=== PATIENT | female | born 1945 | race Caucasian/White ===

== ENCOUNTER 2024-11-17 09:01 | Emergency (ER) | payer OTHER, SELFPAY ==
[2024-11-17 09:14] VITALS: BP 114/65; PULSE 82; RESP 18; TEMP 36.3; O2SAT 96; BMI 26.6
--- NOTE | 2024-11-17 09:47 | CRLHL7_ITS ---
For Patients: As a result of the Century Cures Act, medical imaging exams and procedure reports are released immediately into your electronic medical record. You may view this report before your referring provider. If you have questions, please contact your health care provider. Indication: Lower abdominal pain history of prior appendectomy and cholecystectomy Technique: Volumetric multidetector CT images of the abdomen and pelvis were obtained after the administration of intravenous contrast. 64 cc Isovue 370 low osmolar intravenous contrast Comparison: None available. Findings: The lung bases are clear. The liver is normal in attenuation without intrahepatic biliary ductal dilatation. The portal vein is patent. Prior cholecystectomy. Mild reservoir dilatation of the intrahepatic and common bile ducts. The spleen is normal in enhancement and size. Moderate thickening of the gastric antrum and gastric rugal folds which may represent sequela of gastritis changes. There is a questionable ill-defined low-density mass lesion within the superior distal body/tail of the pancreas seen best on series 2, image 36 measuring up to 2.9 centimeters. The adrenal glands are unremarkable. There are subtle cystic changes of the kidneys with otherwise preserved corticomedullary differentiation. No evidence of hydronephrosis or obstructive uropathy. There is moderate stool seen throughout the colon with distal colonic diverticulosis without definite evidence of diverticulitis. The central small bowel is decompressed with mild diffuse mucosal hyperemia. The appendix is surgically absent. There is extensive nodular omental caking seen predominantly along the ventral omentum most prominently appreciated in the left upper quadrant. No significant pathologic mesenteric lymph nodes or retroperitoneal lymph nodes are appreciated. Moderate atherosclerotic calcification of the aorta and branch vessels without evidence of aneurysm. The solid pelvic viscera are grossly unremarkable. There is extensive likely malignant ascites with moderate central mesenteric edema. The anterior abdominal wall is intact without significant hernias. There is a markedly heterogeneous marrow attenuation of the visualized lumbar vertebral bodies and bilateral pelvic bones. Impression: 1. Demonstration of omental caking and likely malignant ascites with [id number] central mesenteric edema. There is demonstration of a subtle mass within the distal pancreas measuring up to 2.9 centimeters. Findings could represent atypical metastatic changes of pancreatic neoplasm versus other neoplastic source. Correlate with diagnostic paracentesis for improved characterization and/or PET-CT for improved characterization of subtle hypermetabolic foci. 2. Mild nonspecific thickening of the gastric mucosa and gastric antrum. Underlying gastritis/peptic ulcer disease changes are not entirely excluded. 3. Mildly heterogeneous marrow attenuation of the diploic marrow spaces of the lumbar spine and pelvic bones. No obvious focal lytic or blastic lesion; however, underlying marrow infiltration is not excluded. Further evaluation with MRI is recommended. Please note that all CT scans at this facility use dose modulation, iterative reconstruction, and/or weight-based dosing when appropriate to reduce radiation dose to as low as reasonably achievable. Dictated by Sawyer Rodriguez MD @ 11/17/2024 11:03:34 AM (Electronically Signed)
[2024-11-17 09:59] LABS: Basophils Percent Auto 0.9 % (0.0-3.0); Hemoglobin* 12.3 gm/dL (12.0-16.0); Immature Granulocytes Pct Auto 0.4 %; Lymphocytes Percent Auto 12.2 % (20-44); Mean Corpuscular HGB Conc 33 gm/dL (32-36); Mean Corpuscular Hemoglobin 30 pg (26-34); Mean Corpuscular Volume 91 fL (80-100); Monocytes Percent Auto 7.6 % (0.0-11.0); Neutrophils Percent Auto 75.9 % (42.0-72.0); Platelet Count* 576 K/uL (140-440); RDW Coefficient of Variation % 13.8 % (11.5-15.5); Red Blood Count 4.08 m/uL (4.00-5.20); White Blood Count* 14.84 K/uL (4.50-11.00)
[2024-11-17 10:11] LABS: Albumin* 3.8 g/dL (3.3-5.0); Chloride* 100 mmol/L (96-114); Potassium* 4.8 mmol/L (3.6-5.1); Sodium* 129 mmol/L (135-149)
--- OUTSIDE RECORDS SUMMARY | 2024-11-17 10:11 | XMS_ITS | Clinical Summary ---
Author Organization [facility] Address [address] [place] [id number] Care Team Providers Care Camera Storage Clerk Name Role Phone MayitotelJerel MD Primary Care Provider + Allergies No known active allergies Medications ASPIRIN ORALIndications:T ype II or unspecified type diabetes mellitus without mention of complication, not stated as uncontrolled (HC) 325mg daily 0 8 Active pioglitazone 30 mg tabletIndications :Type 2 diabetes mellitus without complication, without long-term current use of insulin (HC) Take 1 Tablet (30 mg) by mouth once daily. 90 Tablet 5 Active metFORMIN 1,000 mg tabletIndications :Type 2 diabetes mellitus without complication, without long-term current use of insulin (HC) Take 1 Tablet (1,000 mg) by mouth two times daily with meals. 180 Tablet 5 Active glimepiride 4 mg tabletIndications :Type 2 diabetes mellitus without complication, without long-term current use of insulin (HC) Take 2 Tablets (8 mg) by mouth once daily with a meal. 180 Tablet 5 Active lisinopriL 40 mg tabletIndications :Essential hypertension with goal blood pressure less than 140/90 Take 1 Tablet (40 mg) by mouth once daily. 90 Tablet 5 Active atenoloL 50 mg tabletIndications :Essential hypertension with goal blood pressure less than 140/90 Take 1 Tablet (50 mg) by mouth once daily. 90 Tablet 5 Active amLODIPine 10 mg tabletIndications :Essential hypertension with goal blood pressure less than 140/90,Peripheral vascular disease Take 1 Tablet (10 mg) by mouth once daily. 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 Hyperopia of both eyes with astigmatism and pres byopia 04/21/2019 Background diabetic retinopathy 04/21/2019 Essential hypertension 08/27/2016 CATARACT, NUCLEAR-MILD OU 08/15/2001 Type 2 diabetes mellitus wit hout complication, without long-term current use of insulin Overview (05/21/2011): 41yo at Dx - 8/87 Next eye exam 05/14 Mixed hyperlipidemia Diaphragmatic hernia without mention of obstruction or gangrene Peripheral vascular disease, unspecified Overview (11/19/2006): R carotid bruit Tobacco use disorder Resolved Problems Problem Noted Date Diagnosed Date Resolved Date Hypertension, essential 03/09/20152 12/2016 Unspecified essential hypertension 03/09/2015 Encounters Date Type Department Care Team Description 11/17/2024 Nurse Triage [facility] [address] [place] [address] Jerel London MD Abdominal Pain 11/01/2024 Refill [facility] [address] [place] [address] Jerel London MD Refill Request (Lisinopril) 09/15/2024 9:00 AM CDT Office Visit [facility] [address] [place] [address] Gulshan Narvaez, OD Eye Exam (DM CEE) 09/15/2024 Travel 09/03/2024 9:35 AM CDT Office Visit [facility] [address] [place] [address] Jerel London MD Diabetes 09/03/2024 Travel from Last 3 Months Immunizations Immunization Administration Dates Next Due COVID-19 VACCINE SPIKEVAX (M ODERNA 50MCG/0.5ML) 12YO+ PFS 03/05/2024,04/04/2023 COVID-19 vaccine (Pfizer-Bio NTech 30mcg/0.3mL) 12YO+ BIVALENT PF, MDV 03/14/2022 COVID-19 vaccine (Escapism MediaBio NTech 30mcg/0.3mL) 12YO+ NATY-SUCROSE PF, MDV 10/25/2021 COVID-19 vaccine (Esc[employer]ism [employer] NTech 30mcg/0.3mL) PF, MDV 03/09/2021,08/30/2020,08/09/2020 Influenza, Inactivated IIV3 (Age 65+ Years) Preserv Free 04/22/2019 Family History Medical History Relation Name Comments Other Father d 40's MVA Diabetes Mother at 90 Hypertension Mother Psychiatric illness Mother 89 yo dementia Thyroid Disease Mother Relation Name Status Comments Father Mother Social History Tobacco Use Types Packs/Day Years Used Date Smoking Tobacco: Every Day Cigarettes 1.5 20 Smokeless Tobacco: Never Tobacco Cessation:Ready to Q uit: No; Counseling Given: Yes Alcohol Use Standard Drinks/Week Comments No 0 (1 standard drink = 0.6 oz pur e alcohol) PHQ-2 Answer Date Recorded PHQ-2 TOTAL SCORE 0 04/04/2023 Social Connections Answer Date Recorded Do you often feel lonely or isolated from those around you? 0 09/03/2024 Financial Resource Strain Answer Date R ecorded Difficulty of Paying Living Expenses 3 09/03/2024 Difficulty of Paying Living Expenses Not on file 09/03/2024 Food Insecurity Answer Date Recorded Do you worry your food will run out before you are able to buy more? 1 09/03/2024 Transportation Needs Answer Date Record ed Does lack of transportation keep you from medica l appointments? 1 09/03/2024 Does lack of transportation keep you from work, meetings or getting things that you need? 1 09/03/2024 Housing Stability Answer Date Recorded What is your housing situation today? 1 09/03/2024 Utilities Answer Date Recorded Do you have trouble paying f or utilities (for example, heat, electricity, water, phone)? 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[employer] Gender Identity Not on file Sexual Orientation Not on file Occupation Industry Job Start Date Job End Date retired Not on file Not on file Not on file Obstetrics History Para Term AB IAB SAB Ectopic Multiple Livin g Live Births 3 3 3 0 0 0 0 0 3 Date Outcome GA Total Labor Labor//3rd Weight Sex Type Anes PTL [place] A1 A5 Name Clin Term Term Term Last Filed Vital Signs Vital Sign Reading Time Taken Comments Blood Pressure 152/69 09/03/2024 9:41 AM CDT Pulse 67 09/03/2024 9:41 AM CDT Temperature 36.4 C (97.5 F) 08/26/2015 8:05 AM CDT Respiratory Rate - - Oxygen Saturation 98% 09/03/2024 9:41 AM CDT Inhaled Oxygen Concentration - - Weight 70.1 kg (154 lb 9.6 oz) 10/23/2011 7:59 AM CDT Height 148.6 cm (4' 10.5) 11/19/2006 8:45 AM CD T Body Mass Index 31.76 11/19/2006 8:45 AM CDT Plan of Treatment Health Maintenance Due Date Last Done Comments Tdap 12/24/1954 BMI (ht and wt on same day) for age 18+ 12/24/1961 Pneumococcal series for age 50+ (1 of 2 - PCV) 12/24/[address] (for lung CA) age 50-80 12/24/1993 Zoster (shingles) series for age 50+ (1 of 2) 12/24/1993 Medicare Wellness for age 65+ 12/24/2008 RSV vaccine for adults or (1 - 1-dose 75+ series) 12/24/2018 Tetanus booster 01/12/2021 01/12/2011 (Declined) Depression screening for age 12+ 04/04/2024 04/04/2023, 12/09/2019, 12/08/2019, Additional history exists COVID-19 vaccine series ( season) 2024 03/05/2024, 04/04/2023, 03/14/2022, Additional history exists Influenza Vaccine (Season Ended) 2025 04/22/2019 DEXA/DXA scan for age 65+ Addressed 01/12/2011 (Dec lined) Overridden with the intention of not completing the topic Hepatitis B series for 19+ Aged Out N o longer eligible based on patient's age to complete this topic Goals Goal Patient Goal Type Associated Problems Recent Progress Patient-Stated? Author BLOOD PRESSURE - MAINTAINS BP less than 140/90 Blood Pressure No Rojelio Jiménez MD Procedures Procedure Name Priority Date/Time Associated Diagnosis Comments HEMOGLOBIN A1C MONITORING (POCT) Routine 09/03/2024 9:41 AM CDT Type 2 diabetes mellitus without complication, without long-term current use of insulin (HC) CBC WITH AUTO DIFFERENTIAL Routine 09/03/2024 9:30 AM CDT Type 2 diabetes mellitus without complication, without long-term current use of insulin (HC) from Last 3 Months Results * (ABNORMAL) HEMOGLOBIN A1C MONITORING (POCT) (09/03/2024 9:41 AM CDT) Pathologist [facility] POC HEMOGLOBIN A1C 10.7(H) <6.0 % OF TOTAL HGB [facility] Comment: Any point of care results exhibiting inconsistency with the patient's clinical status should be repeated using a different testing method. Blood BLOOD SPECIMEN / Unknown 09/03/2024 9:41 AM CDT 09/03/2024 9:42 AM CDT us Jerel London MD CHEMISTRY Final Re sult [facility] [address] [place] [address], [facility] [address] [place] [address] * (ABNORMAL) CBC AND DIFFERENTIAL (09/03/2024 9:30 AM CDT) Pathologist [facility] WHITE BLOOD CELL COUNT 8.8 3.8 - 10.8 Thousand/u L [facility] RED BLOOD CELL COUNT 4.37 3.80 - 5.10 Million/uL [facility] HEMOGLOBIN 13.8 11.7 - 15.5 g/dL [facility] HEMATOCRIT 41.7 35.0 - 45.0 % [facility] MCV 95.4 80.0 - 100.0 fL [facility] MCH 31.6 27.0 - 33.0 pg [facility] MCHC 33.1 32.0 - 36.0 g/dL [facility] Comment: For adults, a slight decrease in the calculated MCHC value (in the range of 30 to 32 g/dL) is most likely not clinically significant; however, it should be interpreted with caution in correlation with other red cell parameters and the patient's clinical condition. RDW 13.5 11.0 - 15.0 % [facility] PLATELET COUNT 311 140 - 400 Thousand/u L [facility] MPV 11.0 7.5 - 12.5 fL [facility] ABSOLUTE NEUTROPHILS 4,083 1,500 - 7,800 cells/uL [facility] ABSOLUTE LYMPHOCYTES 2,948 850 - 3,900 cells/uL [facility] ABSOLUTE MONOCYTES 748 200 - 950 cells/uL [facility] ABSOLUTE EOSINOPHILS 845(H) 15 - 500 cells/uL [facility] ABSOLUTE BASOPHILS 176 0 - 200 cells/uL [facility] NEUTROPHILS 46.4 % [facility] LYMPHOCYTES 33.5 % [facility] MONOCYTES 8.5 % [facility] EOSINOPHILS 9.6 % [facility] BASOPHILS 2.0 % [facility] Blood BLOOD SPECIMEN / Unknown 09/03/2024 9:30 AM CDT 09/03/2024 9:32 AM CDT Jerel London MD HEMATOLOGY Final Re sult [facility] [address] [place] [address], [facility] [address] [place] [address] from Last 3 Months Insurance MEDICARE ADVANTAGE [place] [id number] Care Teams Camera Storage Clerk Relationship Specialty Start Date End Date Votel, Jerel Byers MD [address] [facility] [id number] PCP - General Family Practice 08/18/24
[2024-11-17 10:14] LABS: Alanine Aminotransferase* 13 U/L (4-35); Alkaline Phosphatase* 88 U/L (40-150); Anion Gap 13 mEq/L (7-15); Aspartate Amino Transferase* 22 U/L (12-35); Bilirubin Total* 0.6 mg/dL (0.1-1.5); Blood Urea Nitrogen* 36 mg/dL (7-30); Carbon Dioxide* 16 mmol/L (20-32); Creatinine* 0.9 mg/dL (0.5-1.5); Est. Creatinine Clearance* 42.35; Estimated Glomerular Filt Rate 65 ml/min; Lipase* 198 U/L (23-300); Total Protein* 6.8 g/dL (6.0-8.3)
[2024-11-17 10:15] LABS: Magnesium* 1.7 mg/dL (1.5-2.6)
[2024-11-17 10:16] LABS: Slide Review Reflex No
[2024-11-17 10:17] LABS: Glucose* 354 mg/dL (60-115)
[2024-11-17] MEDS: LACTATED RINGERS 1000 ML 1,000 ML IV (11:09)
[2024-11-17 11:12] LABS: Fecal Occult Blood* Negative (Negative)
[2024-11-17 11:28] VITALS: BP 121/46; PULSE 71; RESP 18; O2SAT 97
[2024-11-17 13:39] LABS: Appearance Urine Clear (Clear); Bilirubin Urine Negative (Negative); Blood Urine Negative (Negative); Color Urine Yellow (Yellow); Glucose Urine 2+ (Negative); Ketones Urine 2+ (Negative); Leukocyte Esterase Urine Negative (Negative); Nitrite Urine Positive (Negative); Protein Urine Negative (Negative); Urobilinogen Urine 0.2 (0.2-1.0); pH Urine 5.5 (5.0-8.5)
[2024-11-17 13:47] LABS: RBC Urine 0-2 (0-2); Squamous Epithelial Cell Urine Few (None-Few)
[2024-11-17 13:48] LABS: Bacteria Urine Moderate
--- NOTE | 2024-11-17 14:04 | ED_ITS ---
ED Chart Note Chart Note Details Date: 11/17/24 Details: He had a I explained to the patient, the procedure, she gave us verbal consent. I supervised Dr. Tate in doing a paracentesis on this lady, indication is ascites, abdominal pain and is slightly elevated white count, concern was for whether not this is SBP. In the left lower quadrant, 3 cm above the left iliac crest, and 3 cm medial, a nice pocket of fluid is found. Areas anesthetized with approximately 3 mL of lidocaine with epinephrine. There is a little bit of bloody fluid withdrawn, when anesthesia was done. was done, and Dr. Tate was able to withdraw atraumatically 20 mL of clear, red tinged fluid. Patient to lerated well.
--- NOTE | 2024-11-17 14:23 | ED.ABDPAIN ---
HPI - Abdominal Pain General Date Seen: 11/17/24 Chief Complaint: Abdominal Pain Stated Complaint: stomach pain Time Seen by Provider: 11/17/24 09:31 Source: patient Mode of arrival: ambulatory Limitations: no limitations History of Present Illness HPI narrative: Patient is an 78-year-old female presenting to the emergency department for abdominal pain. States pain is been going on for 1 week. She has also noticed some black stools. States she does not take iron and does not use any Pepto-Bismol. States symptoms have been going on persistently. Denies having symptoms like that before. Has not noticed any increase abdominal distension. Denies symptoms like this before. Has not had any fevers or chills. Denies chest pain, shortness of breath, lightheadedness, dizziness, weakness, numbness, diarrhea, dysuria, headache, vision changes. States he has not had much of an appetite due to associated abdominal pain and nausea. Initially she was seen most the pain is in left lower quadrant but then states it is a entire lower abdomen. States there is minimal pain in her upper abdomen. Has not noticed any other concerning symptoms. Related Data Previous Rx's ?Medication ?Instructions ?Recorded cefpodoxime 200 mg tablet 200 mg PO BID #14 tabs 11/17/24 Allergies Allergy/AdvReac Type Severity Reaction Status Date / Time No Known Drug Allergies Allergy Verified 11/17/24 09:07 Review of Systems Status of ROS Reports: 10 or more systems reviewed and unremarkable except as noted in History and below PFS PFS Social History Smoking Status: Current every day smoker What tobacco products do you use: cigarettes Smoking packs per day: 1.5 Smoking cigarettes per day: 30.0 How often do you have a drink containing alcohol: never AUDIT-C Alcohol total score: 0 Non-prescribed substance use: denies use service: No Exam Narrative: Exam Narrative: Const: Well-nourished, Well-developed, in mild distress Eyes: PERRL, no conjunctival injection, and symmetrical lids HENT: Atraumatic external nose and ears. Moist mucous membranes. Neck: Symmetric, trachea midline, No thyromegaly. CVS: RRR, No murmurs or gallops. Peripheral pulses 2+ and equal in all extremities RESP: Unlabored respiratory effort. Clear to auscultation bilaterally. GI: Lower abdominal tenderness in her abdomen does appear distended, No rebound or guarding. MSK:Extremities w/o deformity, Normal Active ROM Skin: Warm, Dry. No rashes or lesions. Neuro: Normal Muscle tone, No focal neurological deficits. Psych: Awake, Alert, & Oriented x3. Appropriate mood and affect. Const: Vital Signs, click to edit/add: Vital Signs - 24 hr 11/17/24 09:14 11/17/24 11:28 Temperature 97.3 F L Pulse Rate [Pulse Oximeter] 82 71 Respiratory Rate 18 18 Blood Pressure [[facility]] 114/65 121/46 L Pulse Oximetry 96 97 Oxygen Delivery Me thod Room Air Room Air Course Vital Signs Vital signs: Initial Vital Signs Temperature 97.3 F L 11/17/24 09:14 Temperature Source Temporal Artery Scan 11/17/24 09:14 Pulse Rate 82 11/17/24 09:14 Respiratory Rate 18 11/17/24 09:14 Blood Pressure 114/65 11/17/24 09:14 Blood Pressure Mean 81 11/17/24 09:14 Blood Pressure Position Sitting 11/17/24 09:14 Pulse Oximetry 96 11/17/24 09:14 Oxygen Delivery Method Room Air 11/17/24 09:14 Vital Signs Temperature 97.3 F L 11/17/24 09:14 Pulse Rate 82 11/17/24 09:14 Respiratory Rate 18 11/17/24 09:14 Blood Pressure 114/65 11/17/24 09:14 Pulse Oximetry 96 11/17/24 09:14 Oxygen Delivery Method Room Air 11/17/24 09:14 Temperature 97.3 F L 11/17/24 09:14 Pulse Rate 71 11/17/24 11:28 Respiratory Rate 18 11/17/24 11:28 Blood Pressure 121/46 L 11/17/24 11:28 Pulse Oximetry 97 11/17/24 11:28 Oxygen Delivery Method Room Air 11/17/24 11:28 Medications Administered Medications: Discontinued Medications Generic Name Dose Route Start Last Admin Trade Name Freq PRN Reason Stop Dose Admin Lactated Ringer's 1,000 mls @ 1,000 mls/hr 11/17/24 09:46 11/17/24 12:14 Lactated Ringers 1000 Ml IV 11/17/24 10:45 Infused .Q1H ONE Infusion Lidocaine/Epinephrine 5 ml 11/17/24 14:36 11/17/24 14:42 Lidocaine 1%-Epi 1:100,000 INFILTRATI 11/17/24 14:37 5 ml ONCE ONE Administration MDM - Abdominal Pain MDM Narrative Medical decision making narrative: Patient is an 78-year-old female presenting to the emergency department for abdominal pain. Pain was worsened left lower quadrants he states initially but then states that the all across the lower abdomen. We will do CT scan to look for appendicitis, diverticulitis. The will also use evaluate her abdominal distension. She is passing stools so SBO seems unlikely. Will do a fecal occult blood test. With her age also check an EKG and troponin. CBC, CMP, lipase, urinalysis all ordered. Patient's lab work returns with a white count of 14.84 and a platelet count of 576. No other concerning abnormality seen in her CBC. CMP shows a sodium of 129, BUN 36. Her glucose is 3 in and 54. Urinalysis shows possible UTI. CT scan reviewed by myself and the radiologist shows concerns of a pancreatic mass and or metastatic changes with notable amount of ascites. Recommendations is correlate of diagnostic paracentesis and or pet-CT scan. There is also some heterogeneous marrow attenuation of the lumbar spine and pelvic bones. I did speak to the radiologist in states the MRI can be outpatient. With the elevated white blood cell count of though I do want do a diagnostic paracentesis to rule out SBP. Stool occult was negative It was a bloody tap which can be a sign in of cancer causing the paracentesis based on my review. She does have an elevated white blood cell count that is mostly pulling nuclear white blood cells. Does show concerns for SBP. Fluid glucose is elevated and fluid LDH is also elevated. This could be all from a malignant ascites Of note she has a UTI also like could be why she has the elevated white blood cell count. Is important that we treat her with antibiotics until the Gram stain returns. I spoke to her about the need to stay in the hospital but she is refusing at this time and wants to go home. she looks otherwise stable and I can not force her to stay so I will send her home with cefpodoxime but I did speak to her primary care provider, Dr. London. I informed of all the findings and that I will start her on cefpodoxime. Treatment for SBP is a 3rd generation cephalosporin or if they the beta lactam allergy to give Cipro. She does not have an allergy so I will do the cefpodoxime. She does have a follow-up appointment scheduled for 2 days. Lab Data Labs: Lab Results 11/17/24 11/17/24 11/17/24 Range/Units 09:30 09:47 11:00 WBC 14.84 H (4.50-11.00) K/uL RBC 4.08 (4.00-5.20) m/uL Hgb 12.3 (12.0-16.0) gm/dL Hct 37.0 (33.0-51.0) % MCV 91 (80-100) fL MCH 30 (26-34) pg MCHC 33 (32-36) gm/dL RDW Coeff of Jessi 13.8 (11.5-15.5) % Plt Count 576 H (140-440) K/uL Neut % (Auto) 75.9 H (42.0-72.0) % Lymph % (Auto) 12.2 L (20-44) % Weld % (Auto) 7.6 (0.0-11.0) % Eos % (Auto) 3.0 (0.0-7.0) % Baso % (Auto) 0.9 (0.0-3.0) % Neut # (Auto) 11.30 H (1.7-7.0) K/uL Lymph # (Auto) 1.80 (0.90-2.90) K/uL Weld # (Auto) 1.10 H (0.00-0.90) K/UL Eos # (Auto) 0.40 (0.00-0.50) K/uL Baso # (Auto) 0.10 (0.00-0.30) K/uL Abs Immat Gran (auto) 0.10 (0.00-0.30) K/uL Imm/Tot Granulo (auto) 0.4 % Sodium 129 L (135-149) mmol/L Potassium 4.8 (3.6-5.1) mmol/L Chloride 100 (96-114) mmol/L Carbon Dioxide 16 L (20-32) mmol/L Anion Gap 13 (7-15) mEq/L BUN 36 H (7-30) mg/dL Creatinine 0.9 (0.5-1.5) mg/dL Estimated Creat Clear 42.35 Estimated GFR 65 ml/min Glucose 354 H* (60-115) mg/dL Calcium 10.0 (8.4-10.6) mg/dL Magnesium 1.7 (1.5-2.6) mg/dL Total Bilirubin 0.6 (0.1-1.5) mg/dL AST 22 (12-35) U/L ALT 13 (4-35) U/L Alkaline Phosphatase 88 (40-150) U/L Total Protein 6.8 (6.0-8.3) g/dL Albumin 3.8 (3.3-5.0) g/dL Lipase 198 (23-300) U/L Urine Color (Yellow) Urine Appearance (Clear) Urine pH (5.0-8.5) Ur Specific Maddock (1.000-1.030) Urine Protein (Negative) Urine Glucose (UA) (Negative) Urine Ketones (Negative) Urine Blood (Negative) Urine Nitrite (Negative) Urine Bilirubin (Negative) Urine Urobilinogen (0.2-1.0) Ur Leukocyte Esterase (Negative) Urine RBC (0-2) Urine WBC (0-5) Ur Squamous Epith Cells (None-Few) Urine Bacteria (None) Fluid Volume Fluid Color Fluid Appearance Fluid WBC Cells/uL Fluid RBC Cells/uL Fluid Polynuclear WBCs % Fluid Mononuclear WBCs % Fluid Glucose mg/dL Fluid Albumin gm/dL Fluid LDH U/L Stool Occult Blood Negative (Negative) POC Creatinine 1.0 (0.6-1.3) mg/dl POC Troponin I 0.00 L (0.01-0.04) ng/ml 11/17/24 11/17/24 Range/Units 13:30 13:32 WBC (4.50-11.00) K/uL RBC (4.00-5.20) m/uL Hgb (12.0-16.0) gm/dL Hct (33.0-51.0) % MCV (80-100) fL MCH (26-34) pg MCHC (32-36) gm/dL RDW Coeff of Jessi (11.5-15.5) % Plt Count (140-440) K/uL Neut % (Auto) (42.0-72.0) % Lymph % (Auto) (20-44) % Weld % (Auto) (0.0-11.0) % Eos % (Auto) (0.0-7.0) % Baso % (Auto) (0.0-3.0) % Neut # (Auto) (1.7-7.0) K/uL Lymph # (Auto) (0.90-2.90) K/uL Weld # (Auto) (0.00-0.90) K/UL Eos # (Auto) (0.00-0.50) K/uL Baso # (Auto) (0.00-0.30) K/uL Abs Immat Gran (auto) (0.00-0.30) K/uL Imm/Tot Granulo (auto) % Sodium (135-149) mmol/L Potassium (3.6-5.1) mmol/L Chloride (96-114) mmol/L Carbon Dioxide (20-32) mmol/L Anion Gap (7-15) mEq/L BUN (7-30) mg/dL Creatinine (0.5-1.5) mg/dL Estimated Creat Clear Estimated GFR ml/min Glucose (60-115) mg/dL Calcium (8.4-10.6) mg/dL Magnesium (1.5-2.6) mg/dL Total Bilirubin (0.1-1.5) mg/dL AST (12-35) U/L ALT (4-35) U/L Alkaline Phosphatase (40-150) U/L Total Protein (6.0-8.3) g/dL Albumin (3.3-5.0) g/dL Lipase (23-300) U/L Urine Color Yellow (Yellow) Urine Appearance Clear (Clear) Urine pH 5.5 (5.0-8.5) Ur Specific Maddock 1.010 (1.000-1.030) Urine Protein Negative (Negative) Urine Glucose (UA) 2+ A (Negative) Urine Ketones 2+ A (Negative) Urine Blood Negative (Negative) Urine Nitrite Positive A (Negative) Urine Bilirubin Negative (Negative) Urine Urobilinogen 0.2 (0.2-1.0) Ur Leukocyte Esterase Negative (Negative) Urine RBC 0-2 (0-2) Urine WBC 2-5 (0-5) Ur Squamous Epith Cells Few (None-Few) Urine Bacteria Moderate A (None) Fluid Volume 4 Fluid Color Blood Tinged A Fluid Appearance Slightly Cloudy A Fluid WBC 71220 Cells/uL Fluid RBC 75905 Cells/uL Fluid Polynuclear WBCs 74 % Fluid Mononuclear WBCs 26 % Fluid Glucose 264 mg/dL Fluid Albumin 1.9 gm/dL Fluid LDH > 1000 U/L Stool Occult Blood (Negative) POC Creatinine (0.6-1.3) mg/dl POC Troponin I (0.01-0.04) ng/ml ECG Data Attestation: I personally reviewed and interpreted this ECG as follows: Prior ECG tracings: not available for review Interpretation: Sinus rhythm with a first-degree AV block with a rate of 72 beats per minute, left axis deviation, there is some QRS widening. Does appear to have a bundle-branch block. Discharge Plan Discharge Clinical Impression: Mass of pancreas, Acute UTI Ascites Qualifiers: Ascites type: malignant Qualified Code(s): R18.0 - Malignant ascites Patient Disposition: Home, Self-Care Condition: Stable Additional Instructions: Follow up appointment is scheduled at the [facility] on 11/19 with a 2:30pm appointment time. Make sure you take the ciprofloxacin as directed. You could possibly have a severe abdominal infection and you need to take antibiotics. If symptoms worsen please immediately return to the emergency department for re-evaluation. Prescriptions: New cefpodoxime 200 mg tablet 200 mg PO BID Qty: 14 0RF Rx Instructions: must administer with a meal/food Follow Up/Referrals: Provider,Not a Local [Primary Care Provider, Family Practice] Stand Alone Forms: [facility] Info Instructions Procedures Paracentesis Pre procedure diagnosis: Ascites Post procedure diagnosis: Ascites Written consent by: patient Site marking: site marked Verification/time out: correct patient, correct site and correct procedure Name of person performing procedure: Aubrey Tate Imaging guidance used?: Yes Anesthesia: lidocaine 1% Amount of anesthesia used (mL): 5 Fluid: bloody Post Procedure Exam: awake, alert, normal BP, normal HR and normal SpO2 Estimated blood loss (if any): less than 5mls Complications: none Patient Tolerated Procedure: well and no complications
[2024-11-17 14:40] LABS: Mononuclear WBC Body Fluid* 26 %; Polynuclear WBC Body Fluid* 74 %; RBC, Body Fluid* 38000 Cells/uL; WBC, Body Fluid* 12288 Cells/uL
[2024-11-17 14:41] LABS: BF Clarity* Slightly Cloudy
[2024-11-17] MEDS: LIDOCAINE 1%-EPI 1:100,000 5 ML INFILTRATI (14:42)
[2024-11-17 15:34] LABS: BF Color Blood Tinged; BF Total Volume* 4
[2024-11-17 16:07] LABS: Albumin Body Fluid* 1.9 gm/dL; Glucose Body Fluid* 264 mg/dL; LDH Body Fluid* > 1000 U/L
[2024-11-17 16:20] LABS: Lactate Dehydrogenase* 208 U/L (120-246)
== END 2024-11-17 16:22 | disposition home or self-care (01) ==
PROVIDERS: Emergency Provider Student in an Organized Health Care Education/Training Program
DX: R18.8 Other ascites (principal); K86.9 Disease of pancreas, unspecified; N39.0 Urinary tract infection, site not specified
CPT/HCPCS: 49083; 36415; 74177; 76705; 80053; 81001; 82042; 82270; 82565; 82945; 83615; 83690; 83735; 84484; 85025; 87070; 87086; 87205; 88112; 88305; 88341; 88342; 89051; 93005; 99284; 99285; J7120; Q9967

== ENCOUNTER 2024-11-20 05:44 | Observation (INO) | payer OTHER, SELFPAY ==
[2024-11-20] VITALS (8 sets, daily range): BP systolic 100–115; BP diastolic 45–61; PULSE 61–68; RESP 20–30; TEMP 35.9–36.7; O2SAT 97–99; BMI 27.3
--- OUTSIDE RECORDS SUMMARY | 2024-11-20 05:47 | XMS_ITS | Clinical Summary ---
Author Organization [employer] [facility] Address [address] [place] [id number] Care Team Providers Care Research And Development Technician Name Role Phone MayitoteJerel rueda MD Primary Care Provider + Allergies No known active allergies Medications ASPIRIN ORALIndications: Type II or unspecified type diabetes mellitus without mention of complication, not stated as uncontrolled (HC) 325mg daily 0 12/19/19 08 Active pioglitazone 30 mg tabletIndication s:Type 2 diabetes mellitus without complication, without long-term current use of insulin (HC) Take 1 Tablet (30 mg) by mouth once daily. 90 Tablet 09/04/19 25 Active metFORMIN 1,000 mg tabletIndication s:Type 2 diabetes mellitus without complication, without long-term current use of insulin (HC) Take 1 Tablet (1,000 mg) by mouth two times daily with meals. 180 Tablet 09/04/19 25 Active glimepiride 4 mg tabletIndication s:Type 2 diabetes mellitus without complication, without long-term current use of insulin (HC) Take 2 Tablets (8 mg) by mouth once daily with a meal. 180 Tablet 09/04/19 25 Active lisinopriL 40 mg tabletIndication s:Essential hypertension with goal blood pressure less than 140/90 Take 1 Tablet (40 mg) by mouth once daily. 90 Tablet 09/04/19 25 Active atenoloL 50 mg tabletIndication s:Essential hypertension with goal blood pressure less than 140/90 Take 1 Tablet (50 mg) by mouth once daily. 90 Tablet 09/04/19 25 Active amLODIPine 10 mg tabletIndication s:Essential hypertension with goal blood pressure less than 140/90,Periphera l vascular disease Take 1 Tablet (10 mg) by mouth once daily. 90 Tablet 3 09/04/19 25 Active cefpodoxime 100 mg tablet take 2 tablets (200mg) by mouth twice daily with a meal/food for 7 days* 11/18/19 25 Active acetaminophen 500 mg tabletIndication s:Abdominal pain, generalized Max acetaminophen dose: 4000mg in 24 hrs. Take 1-2 every 6 hours. 11/20/19 25 Active traMADoL (Ultram) 50 mg tabletIndication s:Abdominal pain, generalized Take 1 Tablet (50 mg) by mouth every 6 hours if needed for Pain. 40 Tablet 11/20/19 25 Active Active Problems Problem Noted Date Diagnosed [...] Date Diagnosed Date Resolved Date Hypertension, essential 03/09/201508/02 Unspecified essential hypertension 03/09/2015 Encounters Date Type Department Care Team Description 11/19/2024 2:30 PM CDT Office Visit [facility] [address] [facility] [place] [address] VotelJerel MD ER Follow up ([place], 11/17/24, abdominal pain) 11/19/2024 Orders Only [facility] Scanner 1 scan: (1-Ord) INCOMING RECORDS-CT, [facility], 11/19/2024 11/19/2024 Orders Only [facility] Scanner 1 scan: (1-Ord) INCOMING RECORDS-LABS, [facility], 11/19/2024 11/19/2024 Telephone [facility] [address] [place] [address] [facility] Referral (/Malignant ascites (HC) [R18.0]/Abdominal pain, generalized [R10.84]//) 11/19/2024 Travel 11/17/[address] [facility] [phone] Bebeto Aubrey Gardiner, DO 11/17/2024 Telephone [facility] [address] [place] [address] Jerel London MD 11/17/2024 Nurse Triage [facility] [address] [place] [address] Jerel London MD Abdominal Pain 11/01/2024 Refill [facility] [address] [place] [address] Jerel London MD Refill Request (Lisinopril) 09/15/2024 9:00 AM CDT Office Visit [facility] [address] [facility] [place] [address] Gulshan Narvaez, OD Eye Exam (DM CEE) 09/15/2024 Travel 09/03/2024 9:35 AM CDT Office Visit [facility] [address] [place] [address] Jerel London MD Diabetes 09/03/2024 Travel from Last 3 Months Immunizations Immunization Administration Dates Next Due COVID-19 VACCINE SPIKEVAX (M ODERNA 50MCG/0.5ML) 12YO+ PFS 03/05/2024,04/04/2023 COVID-19 vaccine (Pfizer-Bio NTech 30mcg/0.3mL) 12YO+ BIVALENT PF, MDV 03/14/2022 COVID-19 vaccine (Pfizer-Bio NTech 30mcg/0.3mL) 12YO+ NATY-SUCROSE PF, MDV 10/25/2021 COVID-19 vaccine (Pfizer-Bio NTech 30mcg/0.3mL) PF, MDV 03/09/2021,08/30/2020,08/09/2020 Influenza, Inactivated [...] on file 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 Gender Identity Not on file Sexual Orientation Not on file Occupation Industry Job Start Date Job End Date retired Not on file Not on file Not on file Obstetrics History Para Term AB IAB SAB Ectopic Multiple Livin g Live Births 3 3 3 0 0 0 0 0 3 Date Outcome GA Total Labor Labor/2nd/3rd Weight Sex Type Anes PTL [place] A1 A5 Name Clin Term Term Term Last Filed Vital Signs Vital Sign Reading Time Taken Comments Blood Pressure 105/71 11/19/2024 2:30 PM CDT Pulse 65 11/19/2024 2:30 PM CDT Temperature 36.2 C (97.2 F) 11/19/2024 2:30 PM CDT Respiratory Rate - - Oxygen Saturation 99% 11/19/2024 2:30 PM CDT Inhaled Oxygen Concentration - - Weight 70.1 kg (154 lb 9.6 oz) 10/23/2011 7:59 A M CDT Height 148.6 cm (4' 10.5) 11/19/2006 [...] Procedure Name Priority Date/Time Associated Diagnosis Comments SCAN CORRESP-LABORATORY RESULTS 11/19/2024 12:00 AM CDT SCAN CORRESP-IMAGING 11/19/2024 12:00 AM CDT HEMOGLOBIN A1C MONITORING (POCT) Routine 09/03/2024 9:41 AM CDT Type 2 diabetes mellitus without complication, without long-term current use of insulin (HC) CBC WITH AUTO DIFFERENTIAL Routine 09/03/2024 9:30 AM CDT Type 2 diabetes mellitus without complication, without long-term current use of insulin (HC) from Last 3 Months Results * SCAN CORRESP-LABORATORY RESULTS (11/19/2024 12:00 AM CDT) us Scanner OTHER Final Result * SCAN CORRESP-IMAGING (11/19/2024 12:00 AM CDT) Anatomical Region Laterality Modality Other us Scanner OTHER Final Result * (ABNORMAL) HEMOGLOBIN A1C MONITORING (POCT) (09/03/2024 9:41 AM CDT) Pathologist [facility] POC HEMOGLOBIN A1C 10.7(H) <6.0 % OF TOTAL HGB [facility] Comment: Any point of care results exhibiting inconsistency with the patient's clinical status should be repeated using a different testing method. Blood BLOOD SPECIMEN / Unknown 09/03/2024 9:41 AM CDT 09/03/2024 9:42 AM CDT us Jerel London MD CHEMISTRY Final Re sult [facility] [address] [place] [address], [facility] [address] [place] [address] * (ABNORMAL) CBC AND DIFFERENTIAL (09/03/2024 9:30 AM CDT) WHITE BLOOD CELL COUNT 8.8 3.8 - [...] 9:30 AM CDT 09/03/2024 9:32 AM CDT us Jerel London MD HEMATOLOGY Final Re sult [facility] [address] [place] [address], [facility] [address] [place] [address] from Last 3 Months Insurance MEDICARE ADVANTAGE [place] [id number] Care Teams Research And Development Technician Relationship Specialty Start Date End Date Votel, Jerel Byers MD [address] [place] [id number] PCP - General Family Practice 08/18/24
[2024-11-20] MEDS: HYDROmorphone 0.5 mg/0.5 ml inj IVP ×2 (06:23→08:47)
--- NOTE | 2024-11-20 06:23 | ED.GENADULT ---
HPI - General Adult General Chief complaint: Abdominal Pain Stated complaint: Stomach Pain Wants Pain Meds Time Seen by Provider: 11/20/24 06:08 Source: family Limitations: altered mental status History of Present Illness HPI narrative: 78-year-old female presents the emergency department with significant other. Patient with recent diagnosis of abdominal mass with what appears to be malignant ascites. Saw primary care physician in office yesterday, note is not yet available. Looks like was given some tramadol to try for pain. Patient unable to eat for the past 2 weeks, pain not under control. reports that she has been getting more delirious over the past 12 hours. Breathing more rapidly, seems to be in significant pain. Abdomen continues to get more distended. Based on patient's obviously deteriorating condition, I moved quickly into discussions regarding end of life wishes. reports that he would be the medical decision maker if she is unable to talk for herself but patient's daughter may not agree with on everything. They are aware that there may not be treatment available for what appears to be a widely malignant GI cancer. He reports that she would be a DNR, DNI, would not want a feeding tube and certainly would want to be made comfortable. She offers nothing else by history but I do review the notes from just a few days ago here in the emergency room. I attempt to review the outside notes but these are unavailable, not surprising since she was only seen yesterday. It looks like her past medical history is not pertinent for any cancer, prior appendectomy cholecystectomy and tubal ligation for abdominal surgeries. Has diabetes, hypertension at baseline. Family reports that ROS is otherwise benign times 12 systems in comparison to when she was evaluated a few days ago with the exception of just worsening pain and worsening mental status. Related Data Previous Rx's ?Medication ?Instructions ?Recorded cefpodoxime 200 mg tablet 200 mg PO BID #14 tabs 11/17/24 Allergies Allergy/AdvReac Type Severity Reaction Status Date / Time No Known Drug Allergies Allergy Verified 11/17/24 09:07 [facility] Social History Smoking Status: Current every day smoker What tobacco products do you use: cigarettes Smoking packs per day: 1.5 Smoking cigarettes per day: 30.0 How often do you have a drink containing alcohol: never AUDIT-C Alcohol total score: 0 Non-prescribed substance use: denies use service: No Exam Const: Vital Signs, click to edit/add: Vital Signs - 24 hr 11/20/24 05:58 11/20/24 07:21 11/20/24 07:29 Temperature 96.6 F L Pulse Rate [Pulse Oximeter] 68 62 62 Respiratory Rate 30 H 23 24 Blood Pressure [Ri ght Upper Arm] 115/46 L 100/45 L 101/61 Pulse Oximetry 99 98 99 Oxygen Delivery Me thod Room Air Room Air Room Air Documenting provider has reviewed patient's vital signs: yes Other: Sallow complexion, does not verbalize. Tachypneic with shallow breaths. HENMT: Common normals: normocephalic Head and scalp: normocephalic Other: Dry membranes. Eye: Common normals: PERRL and conjunctivae normal Conjunctiva: conjunctiva(e) normal Pupil: PERRL Neck & C-Spine: General: normal visual inspection Resp: Other: Poor aeration at the bases with bilateral bibasilar crackles. No wheeze. Cardio: Common normals: regular rate, regular rhythm, S1 normal heart sound and S2 normal heart sound Rate: regular rate Rhythm: regular rhythm Heart sounds: S1 normal and S2 normal GI: Other: Distended abdomen with ascites. I did not see it a few days ago but I would quantify this is worse than what was described by that physician. Cannot palpate the internal organs due to the massive ascites. She does wince in pain with palpation, diffuse. 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 Quickly seg weight into an end of life conversation with the patient's . He is very clear that she would want to be DNR, DNI, not want feeding tube or her with measures. He does understand that this cancer is likely terminal and that there is likely no treatment. I let him know unfortunately that she is in the single digit days remaining phase of her life and that I do think that there even is a possibility that she could pass within the next few hours. He will let me know that the patient's daughter may have different wishes for her treatment but patient would not want aggressive measures, does not want aggressive measures. Unfortunately, even with aggressive measures I do not think this patient has chance of survival or meaningful improvement to get to a point where she could be given any type of treatment. I will order some basic labs to confirm my underlying suspicion that she is actively starting the dying process. Will give 0.5 mg of IV Dilaudid, start low-dose fentanyl patch. Reevaluation(s) Reevaluation #1: I reviewed the labs, there marked derangements. She is very acidotic, kidneys are shutting down, anemia, multiple abnormalities. I do not think that interventions are going to be successful and has been agrees that he would not want these done. Pain has returned while I was detained with another critically ill patient. Will give another 0.5 mg of Dilaudid, fentanyl patch has been placed. I have spoken with the hospitalist who is agreeable to observation admission for titration of pain medications, discussion of hospice. Patient may actively be dying and may not survive until discharge, this was related to as well. Will need aids social worker consult. Hospitalist accepts observation admission for pain control, discharge planning. No her work interventions to fix multiple organ shutdown currently in progress. Vital Signs Vital signs: Initial Vital Signs Temperature 96.6 F L 11/20/24 05:58 Temperature Source Temporal Artery Scan 11/20/24 05:58 Pulse Rate 68 11/20/24 05:58 Pulse Rhythm Irregular 11/20/24 05:58 Respiratory Rate 30 H 11/20/24 05:58 Blood Pressure 115/46 L 11/20/24 05:58 Blood Pressure Mean 69 L 11/20/24 05:58 Blood Pressure Position Semi-Fowlers 11/20/24 05:58 Pulse Oximetry 99 11/20/24 05:58 Oxygen Delivery Method Room Air 11/20/24 05:58 Vital Signs Temperature 96.6 F L 11/20/24 05:58 Pulse Rate 68 11/20/24 05:58 Respiratory Rate 30 H 11/20/24 05:58 Blood Pressure 115/46 L 11/20/24 05:58 Pulse Oximetry 99 11/20/24 05:58 Oxygen Delivery Method Room Air 11/20/24 05:58 Temperature 96.6 F L 11/20/24 05:58 Pulse Rate 62 11/20/24 07:29 Respiratory Rate 24 11/20/24 07:29 Blood Pressure 101/61 11/20/24 07:29 Pulse Oximetry 99 11/20/24 07:29 Oxygen Delivery Method Room Air 11/20/24 07:29 Medications Administered Medications: Generic Name Dose Route Start Last Admin Trade Name Freq PRN Reason Stop Dose Admin Fentanyl 1 patch 11/20/24 06:30 11/20/24 06:37 Fentanyl 12 Mcg/Hr Patch TRANSDERMA 1 patch Q72H DAVID Administration Discontinued Medications Generic Name Dose Route Start Last Admin Trade Name Freq PRN Reason Stop Dose Admin Hydromorphone HCl 0.5 mg 11/20/24 06:17 11/20/24 06:23 Hydromorphone 0.5 Mg/0.5 Ml Inj IVP 11/20/24 06:18 0.5 mg ONCE ONE Administration Medical Decision Making Lab Data Lab results reviewed: Yes I reviewed the patient's lab results Lab results narrative: Marked abnormalities, all worse than a couple of days ago. Labs: Lab Results 11/20/24 Range/Units 06:02 WBC 19.81 H (4.50-11.00) K/uL RBC 3.84 L (4.00-5.20) m/uL Hgb 11.7 L (12.0-16.0) gm/dL Hct 37.0 (33.0-51.0) % MCV 96 (80-100) fL MCH 31 (26-34) pg MCHC 32 (32-36) gm/dL RDW Coeff of Jessi 14.7 (11.5-15.5) % Plt Count 617 H (140-440) K/uL Neut % (Auto) 77.8 H (42.0-72.0) % Lymph % (Auto) 12.2 L (20-44) % [place] % (Auto) 5.7 (0.0-11.0) % Eos % (Auto) 0.6 (0.0-7.0) % Baso % (Auto) 0.3 (0.0-3.0) % Neut # (Auto) 15.40 H (1.7-7.0) K/uL Lymph # (Auto) 2.40 (0.90-2.90) K/uL [place] # (Auto) 1.10 H (0.00-0.90) K/UL Eos # (Auto) 0.10 (0.00-0.50) K/uL Baso # (Auto) 0.10 (0.00-0.30) K/uL Abs Immat Gran (auto) 0.70 H (0.00-0.30) K/uL Imm/Tot Granulo (auto) 3.4 % VBG pH 6.932 L* (7.32-7.43) VBG pCO2 19 L* (40-50) mmHG VBG pO2 91.9 H (25-47) mmHG VBG HCO3 4 L (21-28) mmol/L Sodium 131 L (135-149) mmol/L Potassium 6.3 H* (3.6-5.1) mmol/L Chloride 99 (96-114) mmol/L Carbon Dioxide < 5 L* (20-32) mmol/L Anion Gap 27 H (7-15) mEq/L BUN 53 H (7-30) mg/dL Creatinine 1.7 H (0.5-1.5) mg/dL Estimated Creat Clear 18.96 Estimated GFR 30 ml/min Glucose 736 H* (60-115) mg/dL Lactate 5.3 H* (0.5-1.9) mmol/L Calcium 10.7 H (8.4-10.6) mg/dL Total Bilirubin 0.8 (0.1-1.5) mg/dL AST 34 (12-35) U/L ALT 22 (4-35) U/L Alkaline Phosphatase 79 (40-150) U/L Troponin I < 0.01 (0.01-0.04) ng/mL C-Reactive Protein 14.7 H (0.5-1.0) mg/dL NT-Pro-B Natriuret Pep 3020 H (See Note) pg/mL Total Protein 6.8 (6.0-8.3) g/dL Albumin 3.9 (3.3-5.0) g/dL Lipase 326 H (23-300) U/L Discharge Plan Discharge Clinical Impression: Acute delirium, Acute lactic acidosis, Ascites, malignant, Acute renal failure Patient Disposition: Admitted As Observation
--- NOTE | 2024-11-20 06:28 | CRLHL7_ITS ---
For Patients: As a result of the Century Cures Act, medical imaging exams and procedure reports are released immediately into your electronic medical record. You may view this report before your referring provider. If you have questions, please contact your health care provider. INDICATION: Dyspnea, history of malignancy COMPARISON: CT 11/17/2024 TECHNIQUE: 1 view chest radiograph. FINDINGS: Devices: None. Lung volumes are low. Generalized crowding without any focal opacities. No pulmonary edema. No pleural effusion. No pneumothorax. No pneumomediastinum. Heart size is normal. Atherosclerosis. Bones: No acute findings. There is some mass effect lateral to the stomach. Probably ascites based on the prior CT. IMPRESSION: Low lung volumes. Suspect increased abdominal ascites. Dictated by Britney Steele MD @ 11/20/2024 6:46:05 AM (Electronically Signed)
[2024-11-20] MEDS: fentaNYL 12 mcg/hr PATCH 1 PATCH TRANSDERMA (06:37)
[2024-11-20 06:43] LABS: HCO3 VBG 4 mmol/L (21-28); PO2 VBG 91.9 mmHG (25-47)
[2024-11-20 06:49] LABS: Lactate Sepsis w/Reflex* 5.3 mmol/L (0.5-1.9); PCO2 VBG 19 mmHG (40-50); pH VBG 6.932 (7.32-7.43)
[2024-11-20 06:57] LABS: Basophils Percent Auto 0.3 % (0.0-3.0); Eosinophils Percent Auto 0.6 % (0.0-7.0); Hemoglobin* 11.7 gm/dL (12.0-16.0); Immature Granulocytes Pct Auto 3.4 %; Lymphocytes Percent Auto 12.2 % (20-44); Mean Corpuscular HGB Conc 32 gm/dL (32-36); Mean Corpuscular Hemoglobin 31 pg (26-34); Mean Corpuscular Volume 96 fL (80-100); Monocytes Percent Auto 5.7 % (0.0-11.0); Neutrophils Percent Auto 77.8 % (42.0-72.0); Platelet Count* 617 K/uL (140-440); RDW Coefficient of Variation % 14.7 % (11.5-15.5); Red Blood Count 3.84 m/uL (4.00-5.20); White Blood Count* 19.81 K/uL (4.50-11.00)
[2024-11-20 06:58] LABS: Slide Review Reflex No
[2024-11-20 07:08] LABS: Albumin* 3.9 g/dL (3.3-5.0); Chloride* 99 mmol/L (96-114); Sodium* 131 mmol/L (135-149)
[2024-11-20 07:10] LABS: Blood Urea Nitrogen* 53 mg/dL (7-30); Creatinine* 1.7 mg/dL (0.5-1.5); Est. Creatinine Clearance* 18.96; Estimated Glomerular Filt Rate 30 ml/min
[2024-11-20 07:11] LABS: Alanine Aminotransferase* 22 U/L (4-35); Alkaline Phosphatase* 79 U/L (40-150); Aspartate Amino Transferase* 34 U/L (12-35); Bilirubin Total* 0.8 mg/dL (0.1-1.5); Calcium* 10.7 mg/dL (8.4-10.6); Lipase* 326 U/L (23-300); Total Protein* 6.8 g/dL (6.0-8.3)
[2024-11-20 07:25] LABS: Anion Gap 27 mEq/L (7-15); C Reactive Protein* 14.7 mg/dL (0.5-1.0); NT Pro B Type NatriureticPept* 3020 pg/mL (See Note); Troponin I* < 0.01 ng/mL (0.01-0.04)
[2024-11-20 07:27] LABS: Carbon Dioxide* < 5 mmol/L (20-32); Glucose* 736 mg/dL (60-115); Potassium* 6.3 mmol/L (3.6-5.1)
[2024-11-20 08:49] LABS: Lactate Sepsis 2 Hour 2.3 mmol/L (0.5-1.9)
[2024-11-20] MEDS: LORazepam 2 MG/ML inj 0.5 MG IVP (09:07)
--- NOTE | 2024-11-20 10:23 | PM.IMHP1 ---
Assessment and Plan Assessment and plan (1) Acute renal failure: Status: Acute (2) Ascites, malignant: Status: Acute (3) Acute lactic acidosis: Status: Acute (4) Acute delirium: Status: Acute (5) Acute UTI: Status: Acute (6) Mass of pancreas: Status: Acute (7) Need for comfort care: Status: Acute Plan ED provider discussed ED findings with spouse, Satya, also POA. Patient is admitted to medical floor to initiate comfort cares. customer services coordinator for initiation of hospice services. Discussed with spouse appears imminent. Will not resume home medications. No further workup or management of acute findings as above. Plan will be to make patient comfortable. customer services coordinator requesting [facility] home hospice cares - possibly to open later today or early tomorrow morning. Total Time Spent Total Time Spent: Today I spent 75 minutes seeing the patient, reviewing [facility]panse and EPIC notes/diagnostics, discussing the care plan with our care time that includes social work, PT/OT, pharmacy, RT, long-term and documenting my impressions and plan in the medical record. Hospitalist- H&P: HPI History of Present Illness Date Seen: 11/20/24 Chief complaint: Stomach Pain Wants Pain Meds Narrative: Chen Quintero is a 78 year old female past medical history significant for poorly-controlled diabetes mellitus, hypertension, PVD, hyperlipidemia, diabetic retinopathy, tobacco use disorder is admitted to medical floor from the ED for comfort cares and need for hospice assessment. Patient is seen with spouse, Satya, at bedside. Satya provides all of history as patient is currently difficult to arouse. He tells me his began complaining of stomach pain approximately 2 weeks ago. She figured it was a stomach bug and would resolve. Initially she was still eating and going about normal routine daily activities. Her appetite began to diminish. She began vomiting anything she attempted to eat. Approximately 7-10 days ago she began having diarrhea. He tells me for the past several days she has not eaten anything. She has required assistance in tying her shoes or things that would increase her abdominal pain otherwise was independent with ADLs. He tells me she is typically very stoic and did not want to be seen for evaluation. She finally told him she needed to see someone and was brought to the ER on the . She had a follow-up appointment in the clinic yesterday, the . She returns to the ED today with her spouse, via private vehicle. CT imaging from the concerning for metastatic changes a pancreatic neoplasm versus other neoplastic source and malignant ascites. Labs today show a significant leukocytosis with left shift, VBG pH 6.932, pCO2 19, sodium 131, potassium 6.3, creatinine 1.7, glucose 736, lactate 5.3, CRP 14.7, proBNP 3020, lipase 326 UA has nitrites CXR suspicious for increased abdominal ascites Review of Systems Narrative: REVIEW OF SYSTEMS: Complete review of systems performed and negative unless otherwise stated in HPI or below. As reported by spouse Medical Decision Making Medical Decision Making Code Status: DNR/DNI Has patient completed a Health Care Directive: No During This Stay, Who Would You Like To Make Decisions For You In The Event You Are Unable To Make Them For Yourself?: Patient unable to provide this. Spouse is [facility] Social History What is your current living situation?: I presently have a place to live Problems where you live: no known problems Problems where you live details: NA In the past 12 months, utilities in danger of being shut off: no In past 12 months, lack of transportation kept you from medical appts, meetings, work, or getting things needed for daily living: no In the past 12 mos, have been you worried that your food would run out before you had money to buy more?: never true In the past 12 mos, the food you bought just didn't last and you didn't have money to buy more?: never true Highest level of school completed/degree received: high school graduate Smoking Status: Current every day smoker What tobacco products do you use: cigarettes Smoking packs per day: 1.5 Smoking cigarettes per day: 30.0 How often do you have a drink containing alcohol: never AUDIT-C Alcohol total score: 0 Non-prescribed substance use: denies use Caffeine: Yes (coffee) How often does anyone, including family, friends and others, physically hurt you: never How often does anyone, including family, friends and others, insult or talk down to you: never How often does anyone, including family, friends and others, threaten you with harm: never How often does anyone, including family, friends and others, scream or curse at you: never service: No Meds Home Medications and Allergies Home Medications ?Medication ?Instructions ?Recorded ?Confirmed ?Type cefpodoxime 200 mg tablet 200 mg PO BID #14 tabs 11/17/24 11/20/24 Rx amlodipine 10 mg tablet 10 mg PO DAILY 11/20/24 11/20/24 History atenolol 50 mg tablet 50 mg PO DAILY 11/20/24 11/20/24 History glimepiride 4 mg tablet 8 mg PO DAILY 11/20/24 11/20/24 History lisinopril 40 mg tablet 40 mg PO DAILY 11/20/24 11/20/24 History metformin 1,000 mg tablet 1,000 mg PO BID 11/20/24 11/20/24 History pioglitazone 30 mg tablet 30 mg PO DAILY 11/20/24 11/20/24 History Allergies Allergy/AdvReac Type Severity Reaction Status Date / Time No Known Drug Allergies Allergy Verified 11/17/24 09:07 Exam Narrative: Exam Narrative: PHYSICAL EXAM General: Lying in bed, sonorous, does not respond to voice or touch Cardiovascular: RRR Pulmonary: Mild dyspnea Skin: Warm, dry. Const: Vital Signs, click to edit/add: Vital Signs - 24 hr 11/20/24 05:58 11/20/24 07:21 11/20/24 07:29 Temperature 96.6 F L Pulse Rate Pulse Rate [Pulse Oximeter] 68 62 62 Respiratory Rate 30 H 23 24 Blood Pressure Blood Pressure [Ri ght Arm] Blood Pressure [Ri ght Upper Arm] 115/46 L 100/45 L 101/61 Pulse Oximetry 99 98 99 Oxygen Delivery Me thod Room Air Room Air Room Air 11/20/24 07:30 11/20/24 08:00 11/20/24 09:43 Temperature 98.1 F Pulse Rate 64 61 Pulse Rate [Pulse Oximeter] 64 Respiratory Rate 24 23 20 Blood Pressure 101/61 Blood Pressure [Ri ght Arm] 102/48 L Blood Pressure [Ri ght Upper Arm] Pulse Oximetry 99 99 97 Oxygen Delivery Il thod Room Air Hospitalist - H&P: Result Labs Labs: Short CBC 11/20/24 Range/Units 06:02 WBC 19.81 H (4.50-11.00) K/uL Hgb 11.7 L (12.0-16.0) gm/dL Hct 37.0 (33.0-51.0) % Plt Count 617 H (140-440) K/uL BMP 11/20/24 06:02 Sodium 131 L Potassium 6.3 H* Chloride 99 Carbon Dioxide < 5 L* BUN 53 H Creatinine 1.7 H Glucose 736 H* Calcium 10.7 H Cardiac Enzymes 11/20/24 Range/Units 06:02 Troponin I < 0.01 (0.01-0.04) ng/mL Liver Function 11/20/24 Range/Units 06:02 Total Bilirubin 0.8 (0.1-1.5) mg/dL AST 34 (12-35) U/L ALT 22 (4-35) U/L Alkaline Phosphatase 79 (40-150) U/L Albumin 3.9 (3.3-5.0) g/dL Imaging CT scan - abdomen: Attestation: I have reviewed the pertinent imaging results. Radiologist's impression: The lung bases are clear. The liver is normal in attenuation without intrahepatic biliary ductal dilatation. The portal vein is patent. Prior cholecystectomy. Mild reservoir dilatation of the intrahepatic and common bile ducts. The spleen is normal in enhancement and size. Moderate thickening of the gastric antrum and gastric rugal folds which may represent sequela of gastritis changes. There is a questionable ill-defined low-density mass lesion within the superior distal body/tail of the pancreas seen best on series 2, image 36 measuring up to 2.9 centimeters. The adrenal glands are unremarkable. There are subtle cystic changes of the kidneys with otherwise preserved corticomedullary differentiation. No evidence of hydronephrosis or obstructive uropathy. There is moderate stool seen throughout the colon with distal colonic diverticulosis without definite evidence of diverticulitis. The central small bowel is decompressed with mild diffuse mucosal hyperemia. The appendix is surgically absent. There is extensive nodular omental caking seen predominantly along the ventral omentum most prominently appreciated in the left upper quadrant. No significant pathologic mesenteric lymph nodes or retroperitoneal lymph nodes are appreciated. Moderate atherosclerotic calcification of the aorta and branch vessels without evidence of aneurysm. The solid pelvic viscera are grossly unremarkable. There is extensive likely malignant ascites with moderate central mesenteric edema. The anterior abdominal wall is intact without significant hernias. There is a markedly heterogeneous marrow attenuation of the visualized lumbar vertebral bodies and bilateral pelvic bones. Impression: 1. Demonstration of omental caking and likely malignant ascites with [id number] central mesenteric edema. There is demonstration of a subtle mass within the distal pancreas measuring up to 2.9 centimeters. Findings could represent atypical metastatic changes of pancreatic neoplasm versus other neoplastic source. Correlate with diagnostic paracentesis for improved characterization and/or PET-CT for improved characterization of subtle hypermetabolic foci. 2. Mild nonspecific thickening of the gastric mucosa and gastric antrum. Underlying gastritis/peptic ulcer disease changes are not entirely excluded. 3. Mildly heterogeneous marrow attenuation of the diploic marrow spaces of the lumbar spine and pelvic bones. No obvious focal lytic or blastic lesion; however, underlying marrow infiltration is not excluded. Further evaluation with MRI is recommended. Chest x-ray: Attestation: I have reviewed the pertinent imaging results. Radiologist's impression: Lung volumes are low. Generalized crowding without any focal opacities. No pulmonary edema. No pleural effusion. No pneumothorax. No pneumomediastinum. Heart size is normal. Atherosclerosis. Bones: No acute findings. There is some mass effect lateral to the stomach. Probably ascites based on the prior CT. IMPRESSION: Low lung volumes. Suspect increased abdominal ascites.
--- NOTE | 2024-11-20 12:09 | PC.SOCIAL ---
Addendum entered by DAVID Pedraza 11/20/24 15:11: Received call from [facility] confirming they can open pt to hospice 11/21/24 at 9:00am at her home. Hospice is reaching out to to discuss DME to be provided at home and coordinated between hospice and family. Prior to discharge, RN can call [facility] to confirm discharge plans are the same or update with any changes to phone # [phone]. Discharge orders can be faxed to hospice at fax# [phone]. Hospice is requesting any medication that pt will need immediately be sent home with pt. Hospice to follow up with medication needs at home. Original Note: Discharge plan: Met with pt's per MD order for hospice care. confirmed he wants hospice care arranged for pt at home. [place] [address] [place] [address]. Provided with list of hospice agencies that serve his home area and general information on hospice services. Answered 's questions on hospice care. is generally aware of hospice services as he has had two family members who recently passed with hospice care at home. requested social work contact Guy Yi as pt is an [facility] pt and he thinks that would be best. Called [facility] [phone] and confirmed availability for a new referral. Faxed requested information to [facility] intake at [phone] and awaiting call back with confirmation of acceptance and to discuss coordination of discharge. would like pt to discharge home today and [facility] is aware of this request.
[2024-11-20] MEDS: MORPHINE 10 MG/0.5 ML ORAL SOLN PO ×3 (17:32→22:16)
--- NOTE | 2024-11-20 19:40 | PC.NURSE ---
End of shift: Repo q2h, assessing brief, assessing nonverbal cues of pain. Pt unresponsive. Moaning during reposition. Family requested PRN Morphine x1 during shift. Family at bedside for entirety of the shift. Pt appears resting, call light within reach. IV SL. Patch present to the shoulder.
[2024-11-20] MEDS: SODIUM CHLORIDE 0.9 % (FLUSH) 10 ML SYRINGE 5 ML IVF (20:43)
[2024-11-21] MEDS: MORPHINE 10 MG/0.5 ML ORAL SOLN PO ×3 (01:39→07:44)
--- NOTE | 2024-11-21 06:02 | PC.NURSE ---
End of shift note [id number]: Pt currently receiving comfort cares including staff providing oral cares and performing turning and repositioning along with checking brief and changing PRN. Pt incontinent of bladder. PRN Morphine given throughout the shift in order to promote comfort. Satya stayed with pt overnight and is aware that pt will be transported to home this morning in order to have Hospice services initiated. Fentanyl patch in place for pain control. Bed alarm on for safety and call light within reach.
--- NOTE | 2024-11-21 07:29 | P.DS_ITS ---
DS: Providers Provider Time Seen by Provider: 07:29 Date Seen: 11/21/24 Date of admission: 11/20/24 09:25 Primary care physician: Not a Local Provider Admitting Clinician: Rachel eKller MD Consults: 11/20/24 10:39 Consult to Electronic Equipment Repairmen [CONS] Routine Comment: Reason for Consult:: Social Service Consult Hospice Needed Attending Physician on discharge: Eda Sequeira MD Date of Discharge: 11/21/24 DS: Diagnosis Discharge Diagnosis (1) End of life care: Status: Acute (2) Need for comfort care: Status: Acute (3) Acute renal failure: Status: Acute (4) Ascites, malignant: Status: Acute (5) Acute lactic acidosis: Status: Acute (6) Acute delirium: Status: Acute (7) Acute UTI: Status: Acute (8) Ascites: Status: Acute (9) Mass of pancreas: Status: Acute DS: Summary Hospital Course Hospital Course: Per H&P: Chen Quintero is a 78 year old female past medical history significant for poorly-controlled diabetes mellitus, hypertension, PVD, hyperlipidemia, diabetic retinopathy, tobacco use disorder is admitted to medical floor from the ED for comfort cares and need for hospice assessment. Patient is seen with spouse, Satya, at bedside. Satya provides all of history as patient is currently difficult to arouse. He tells me his began complaining of stomach pain approximately 2 weeks ago. She figured it was a stomach bug and would resolve. Initially she was still eating and going about normal routine daily activities. Her appetite began to diminish. She began vomiting anything she attempted to eat. Approximately 7-10 days ago she began having diarrhea. He tells me for the past several days she has not eaten anything. She has required assistance in tying her shoes or things that would increase her abdominal pain otherwise was independent with ADLs. He tells me she is typically very stoic and did not want to be seen for evaluation. She fi leticia told him she needed to see someone and was brought to the ER on the . She had a follow-up appointment in the clinic yesterday, the . She returns to the ED today with her spouse, via private vehicle. CT imaging from the concerning for metastatic changes a pancreatic neoplasm versus other neoplastic source and malignant ascites. Labs today show a significant leukocytosis with left shift, VBG pH 6.932, pCO2 19, sodium 131, potassium 6.3, creatinine 1.7, glucose 736, lactate 5.3, CRP 14.7, proBNP 3020, lipase 326 UA has nitrites CXR suspicious for increased abdominal ascites. Patient appears imminent. Patient's spouse and POA, Satya, denies years that patient be kept comfortable and to bring her home on hospice. Hospice is available to admit to this morning. He is discharged home on hospice, status is imminent. Time Spent with Patient Time attestation: Total time spent providing and/or coordinating discharge services: Exam Narrative: Exam Narrative: General: Unresponsive to voice or touch, sonorous. Cardiovascular: Regular rate and rhythm. Respiratory: Mildly tachypneic. Const: Vital Signs, click to edit/add: Vital Signs - 24 hr 11/20/24 07:30 11/20/24 08:00 11/20/24 09:43 Temperature 98.1 F Pulse Rate 64 61 Pulse Rate [Pulse Oximeter] 64 Respiratory Rate 24 23 20 Blood Pressure 101/61 Blood Pressure [Ri ght Arm] 102/48 L Pulse Oximetry 99 99 97 Oxygen Delivery Me thod Room Air 11/20/24 10:35 11/20/24 23:00 Temperature Pulse Rate Pulse Rate [Pulse Oximeter] Respiratory Rate 22 20 Blood Pressure Blood Pressure [Ri ght Arm] Pulse Oximetry Oxygen Delivery Me thod Room Air DS: Data Data Completed and Pending Completed studies during hospitalization: Ordering Physician: Virginie Diana M.D. Date of Service: 11/20/24 Procedure(s): XR chest 1V portable Accession Number(s): [id number] cc: Provider,Not a Local; Virginie Diana M.D.~ For Patients: As a result of the Century Cures Act, medical imaging exams and procedure reports are released immediately into your electronic medical record. You may view this report before your referring provider. If you have questions, please contact your health care provider. INDICATION: Dyspnea, history of malignancy COMPARISON: CT 11/17/2024 TECHNIQUE: 1 view chest radiograph. FINDINGS: Devices: None. Lung volumes are low. Generalized crowding without any focal opacities. No pulmonary edema. No pleural effusion. No pneumothorax. No pneumomediastinum. Heart size is normal. Atherosclerosis. Bones: No acute findings. There is some mass effect lateral to the stomach. Probably ascites based on the prior CT. IMPRESSION: Low lung volumes. Suspect increased abdominal ascites. Dictated by Britney Steele MD @ 11/20/2024 6:46:05 AM (Electronically Signed) Labs on day of discharge: Labs from last 24 hours 11/20/24 08:40 Lactate 2.3 H Discharge Plan Discharge Disposition: Xfer Home- (Hospice) Date of Admission: 11/20/24 09:25 Attending Provider on Discharge: Eda Sequeira Primary Care Provider: Provider,Not a Local Condition: Unchanged Anticipated Discharge Date/Time: 11/21/24 09:00 Discharge Medications: Discontinued cefpodoxime 200 mg tablet 200 mg PO BID Qty: 14 0RF Rx Instructions: must administer with a meal/food amlodipine 10 mg tablet 10 mg PO DAILY metformin 1,000 mg tablet 1,000 mg PO BID glimepiride 4 mg tablet 8 mg PO DAILY pioglitazone 30 mg tablet 30 mg PO DAILY lisinopril 40 mg tablet 40 mg PO DAILY atenolol 50 mg tablet 50 mg PO DAILY Discharge Orders: Discharge Order (Routine); Ordered 11/21/24 Ordered By: Eda Sequeira Additional Instructions: Admit to hospice. Activity Level: Activity as Tolerated Discharge Diet: Regular Diet Detail: to comfort Follow Up Appointments: Provider,Not a Local [Primary Care Provider, Family Practice] Forms: Food Brasilealth Info Instructions
[2024-11-21 07:30] VITALS: PULSE 64
--- NOTE | 2024-11-21 08:19 | PC.NURSE ---
discharge. pt is unresponsive. she is none verbal. she does moan with movement. Pt is on comfort cares. oral cares done. she was turned and reposition. Pt is incontinent of bladder. brief is on. PRN Morphine given before discharge. Fentanyl patch in place. Bed alarm on for safety and call light within reach. report was given to EMS, pt left with EMS and SL was d/c intact.
--- NOTE | 2024-11-21 17:36 | PC.NURSE ---
Called patient's Satya and went over discharge with him on the phone. All questions answered.
== END 2024-11-21 07:50 | disposition hospice, home (50) ==
LOC: ED 08:41 → MEDSURG 09:26
PROVIDERS: Admitting Provider Family Medicine; Emergency Provider Family Medicine; Visit Provider Family Medicine
DX: R10.9 Unspecified abdominal pain (principal); Z51.5 Encounter for palliative care; D72.829 Elevated white blood cell count, unspecified; E87.21 Acute metabolic acidosis; R18.0 Malignant ascites; N17.9 Acute kidney failure, unspecified; K86.89 Other specified diseases of pancreas; R41.82 Altered mental status, unspecified; N39.0 Urinary tract infection, site not specified; D64.9 Anemia, unspecified; R06.82 Tachypnea, not elsewhere classified; R18.8 Other ascites; Z72.0 Tobacco use; E11.9 Type 2 diabetes mellitus without complications; I10 Essential (primary) hypertension; E78.5 Hyperlipidemia, unspecified; Z79.84 Long term (current) use of oral hypoglycemic drugs; Z66 Do not resuscitate
CPT/HCPCS: 36415; 71045; 80053; 82803; 83605; 83690; 83880; 84484; 85025; 86140; 96374; 96375; 96376; 99284; 99285; A9270; G0378; J1171; J2060

== ENCOUNTER 2024-11-21 07:52 | Outpatient (CLI) | payer OTHER, SELFPAY ==
--- OUTSIDE RECORDS SUMMARY | 2024-11-24 00:19 | XMS_ITS | Clinical Summary ---
Author Organization [employer] [facility] Address [address] [place] [id number] Care Team Providers Care Filter Cloth Maker Name Role Phone Nanci Byrd RN Unavailable [facility] Unavailable [phone] Cruz Parsons MD Unavailable Pcp, No Primary Care Provider Unavailabl e Allergies No known active allergies Medications acetaminophen 500 mg tabletIndicatio ns:pain Max acetaminophen dose: 4000mg in 24 hrs. Take 1-2 every 6 hours. 11/20/19 25 Active morphine CONCENTRATE 20 mg/mL (100 mg/5 mL) oral solutionIndicat ions:severe pain with opioid tolerance Take 0.25 to 0.5 mL (5 to 10 mg) by mouth every hour if needed for Pain. 30 mL 5 11:12 AM CDT 11/22/19 25 Active COMFORT CARE KIT ([facility])Indicat ions:hospice care CCK: HOLD CONTENTS IN RESERVE UNLESS DIRECTED BY HOSPICE NURSE OR PHARMACIST - Store in a cool dry location 1 Each 5 11:12 AM CDT 11/22/19 25 Active prochlorperazin e 25 mg suppositoryIndi cations:nausea and vomiting CCK: Insert 1 suppository (25 mg) rectally twice daily as needed for nausea/vomiting 2 Suppository 5 11:12 AM CDT 11/22/19 25 Active hyoscyamine Sulfate 0.125 mg ODTIndications: sialorrhea CCK: Place 1 to 2 tablets (0.125 to 0.25 mg) in the mouth every 4 hours as needed or scheduled for copious secretions 10 Tablet 5 11:12 AM CDT 11/22/19 25 Active haloperidol 2 mg/mL CONCENTRATEIndi cations:deliriu m CCK: Take 0.5 to 1 mg (0.25 to 0.5 mL) by mouth/sublingual ly every 4 hours as needed for nausea/agitation /hallucinations. May use 1 to 2 mg (0.5 to 1 mL) every 30 minutes up to 3 doses for severe delirium. Page MD after 3 doses if ineffective. 15 mL 5 11:12 AM CDT 11/22/19 25 Active bisacodyL (Dulcolax (bisacodyl)) 10 mg suppositoryIndi cations:constip ation CCK: Insert 1 suppository (10 mg) rectally daily as needed for constipation 2 Suppository 5 11:12 AM CDT 11/22/19 25 Active LORazepam CONCENTRATE 2 mg/mL liquidIndicatio ns:anxiety For seizure protocol per provider order. 30 mL 5 11:12 AM CDT 11/22/19 25 Active ASPIRIN ORALIndications :Type II or unspecified type diabetes mellitus without mention of complication, not stated as uncontrolled (HC) 325mg daily 0 12/19/19 08 025 Disconti nued(*Me d complete /Regimen complete /Level of care change) pioglitazone 30 mg tabletIndicatio ns:Type 2 diabetes mellitus without complication, without long-term current use of insulin (HC) Take 1 Tablet (30 mg) by mouth once daily. 90 Tablet 3 09/04/19 25 025 Disconti nued(*Me d complete /Regimen complete /Level of care change) metFORMIN 1,000 mg tabletIndicatio ns:Type 2 diabetes mellitus without complication, without long-term current use of insulin (HC) Take 1 Tablet (1,000 mg) by mouth two times daily with meals. 180 Tablet 3 09/04/19 25 025 Disconti nued(*Me d complete /Regimen complete /Level of care change) glimepiride 4 mg tabletIndicatio ns:Type 2 diabetes mellitus without complication, without long-term current use of insulin (HC) Take 2 Tablets (8 mg) by mouth once daily with a meal. 180 Tablet 3 09/04/19 25 025 Disconti nued(*Me d complete /Regimen complete /Level of care change) lisinopriL 40 mg tabletIndicatio ns:Essential hypertension with goal blood pressure less than 140/90 Take 1 Tablet (40 mg) by mouth once daily. 90 Tablet 3 09/04/19 25 025 Disconti nued(*Me d complete /Regimen complete /Level of care change) atenoloL 50 mg tabletIndicatio ns:Essential hypertension with goal blood pressure less than 140/90 Take 1 Tablet (50 mg) by mouth once daily. 90 Tablet 3 09/04/19 25 025 Disconti nued(*Me d complete /Regimen complete /Level of care change) amLODIPine 10 mg tabletIndicatio ns:Essential hypertension with goal blood pressure less than 140/90,Peripher al vascular disease Take 1 Tablet (10 mg) by mouth once daily. 90 Tablet 3 09/04/19 25 025 Disconti nued(*Me d complete /Regimen complete /Level of care change) cefpodoxime 100 mg tablet take 2 tablets (200mg) by mouth twice daily with a meal/food for 7 days* 11/18/19 25 025 Disconti nued(*Me d complete /Regimen complete /Level of care change) traMADoL (Ultram) 50 mg tabletIndicatio ns:Abdominal pain, generalized Take 1 Tablet (50 mg) by mouth every 6 hours if needed for Pain. 40 Tablet 11/20/19 25 025 Disconti nued(*Me d complete /Regimen complete /Level of care change) Active Problems Problem Noted Date Diagnosed Date Encounter for hospice care discussion 11/20/2024 Overview (11/21/2024): Images from the original note were not included. 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 Ascites 3. Draft Narrative Statement: This 78 year old woman recently presented to acute care with new onset abdominal pain. Imaging revealed a pancreatic mass as well as what appear to be liver metastases and ascites. She underwent a diagnostic paracentesis which was suggestive of SBP, but cytology has not yet returned and malignant spread is also very possible. In spite of treatment for SBP, she has clinically worsened, and appears to be actively dying at the time of hospice referral. At the time of our evaluation, her PPS is 10% with labored breathing and mild agitation. 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 Hyperopia [...] Encounters Date Type Department Care Team Description 11/23/2024 Home Care Visit [address] [address] Sangita Cuenca [employer]EL [employer] SALES REPRESENTATIVE POST- PHONE CALL 11/22/2024 10:45 AM CDT Home Care Visit [address] [address] Sangita Cuenca RN - HOSPICE COMPREHENSIVE VISIT 11/22/2024 Nurse Triage [address] [address] Cruz Parsons MD 11/22/2024 Travel 11/21/2024 9:00 AM CDT Home Care Visit [address] [address] Markus Celaya RN SN - HOSPICE ADMISSION EVALUATION 11/21/2024 Plan of Care Documentation [address] [address] 11/21/[address] [address] Markus Celaya RN Refill Request 11/21/2024 Hospice Provider Onl y Enc [address] [address] Jose Mayo MD 11/21/2024 Nurse Triage [address] [address] Jose Mayo MD Hospice 11/20/2024 Transcribe Orders [address] [address] Virginie Diana MD 11/20/2024 Orders Only [facility] Scanner 1 scan: (1-Ord) INCOMING RECORDS-LABS, [facility], 11/20/2024 11/19/2024 2:30 PM CDT Office Visit [address] [id number] Jerel London MD ER Follow up ([place], 11/17/24, abdominal pain) 11/19/2024 Orders Only [facility] Scanner 1 scan: (1-Ord) INCOMING RECORDS-CT, [facility], 11/19/2024 11/19/2024 Orders Only [facility] Scanner 1 scan: (1-Ord) INCOMING RECORDS-LABS, [facility], 11/19/2024 11/19/2024 Telephone [facility] [address] [address] [facility] Referral (/Malignant ascites (HC) [R18.0]/Abdominal pain, generalized [R10.84]//) 11/19/2024 Travel 11/17/2024 Lab Requisition [facility] [phone] Aubrey Tate DO 11/17/2024 Telephone [facility] [address] [place] [address] Jerel London MD 11/17/2024 Nurse Triage [facility] [address] [place] [address] Jerel London MD Abdominal Pain 11/01/2024 Refill [facility] [address] [facility] [place] [address] Jerel London MD Refill Request (Lisinopril) 09/15/2024 9:00 AM CDT Office Visit [facility] [address] [facility] 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 [employer] Gender Identity Not on file Sexual Orientation [...] Sign Reading Time Taken Comments Blood Pressure 85/54 11/22/2024 11:24 AM CDT Pulse 51 11/22/2024 11:24 AM CDT Temperature 36.4 C (97.5 F) 11/22/2024 11:24 AM CDT Respiratory Rate 26 11/22/2024 11:24 AM CDT Oxygen Saturation 99% 11/19/2024 2:30 PM CDT Inhaled Oxygen Concentration - - Weight 70.1 kg (154 lb 9.6 oz) 10/23/2011 7:59 A M CDT Height 148.6 cm (4' 10.5) 11/19/2006 8:45 AM CD T Body Mass Index 31.76 11/19/2006 8:45 AM CDT Plan of Treatment Not on file Goals Goal Patient Goal Type Associated Problems Recent Progress Patient-Stated? Author BLOOD PRESSURE - MAINTAINS BP less than 140/90 Blood Pressure No Rojelio Jiménez MD Procedures Procedure Name Priority Date/Time Associated Diagnosis Comments SCAN CORRESP-LABORATORY RESULTS 11/20/2024 12:00 AM CDT SCAN CORRESP-LABORATORY RESULTS 11/19/2024 12:00 AM CDT SCAN CORRESP-IMAGING 11/19/2024 12:00 AM CDT LAB TRACKING EVENT Routine 11/17/2024 12 :57 PM CDT PATH NON FLUE DUST LABORER CYTOLOGY Routine 11/17/2024 12:57 PM CDT HEMOGLOBIN A1C MONITORING (POCT) Routine 09/03/2024 9:41 AM CDT Type 2 diabetes mellitus without complication, without long-term current use of insulin (HC) CBC WITH AUTO DIFFERENTIAL Routine 09/03/2024 9:30 AM CDT Type 2 diabetes mellitus without complication, without long-term current use of insulin (HC) from Last 3 Months Results * SCAN CORRESP-LABORATORY RESULTS (11/20/2024 12:00 AM CDT) Only the most recent of2 resultswithin the time period is included. us Scanner OTHER Final Result * SCAN CORRESP-IMAGING (11/19/2024 12:00 AM CDT) Anatomical Region Laterality Modality Other us Scanner OTHER Final Result * LAB TRACKING EVENT (11/17/2024 12:57 PM CDT) Other (Other) Client Collect / Unknown 11/17/2024 12:57 PM CDT 11/17/2024 10:36 PM CDT us Aubrey Tate DO LAB BILL ONLY Final Re sult [facility] [address] [place] [address], * PATH NON FLUE DUST LABORER CYTOLOGY (11/17/2024 12:57 PM CDT) Case Report Medical Cytology Report Case: [id number] Authorizing Provider: Aubrey Tate DO Collected: 11/17/2024 1257 Ordering Location: [facility] Received: 11/18/2024 0706 Pathologist: Mark Anthony Jeffries MD Specimen: Peritoneal Fluid 11/20/2024 3:00 PM CDT [facility] Final Diagnosis A) PERITONEAL FLUID CYTOLOGY: 1. Positive for adenocarcinoma 2. See comment for further discussion 11/20/2024 3:00 PM CDT [facility] at 1500 CDT Comment A) This adenocarcinoma expresses CDX2 as well as cytokeratin 7 and 20. This combination of staining is compatible with a pancreatic or upper gastrointestinal primary. Other primary sites are not necessarily excluded (this staining pattern can occasionally be seen in pulmonary and gynecologic carcinomas showing an enteric immunophenotype, and colorectal adenocarcinoma). Case seen in consultation with Dr. Serrato. 11/20/2024 3:00 PM CDT [facility] Clinical Information This 78-year-old female presented to the [facility] emergency department for abdominal pain. She has recently noticed some black stools. She has ascites. A CT scan performed November 17, 2024 demonstrated omental caking and likely malignant ascites with mild to moderate central mesenteric edema. There is demonstration of a subtle mass within the distal pancreas measuring up to 2.9 cm. Findings could represent atypical metastatic changes of pancreatic neoplasm versus other neoplastic source. 11/20/2024 3:00 PM CDT [facility] Gross Description A) SOURCE: Peritoneal Fluid The specimen consists of 30 cc of light red cloudy fluid from which the following is prepared: -1 Air-dried slide for DiffQuik stain -1 ThinPrep slide for Papanicolaou Stain -1 Cell block slide A2 Cell block material was placed in formalin at 0905 on 11/18/24 and fixed in formalin at least 6 hours and no more than 72 hours. 11/20/2024 3:00 PM CDT [facility] Microscopic Description Specimen adequacy: Adequate for interpretation. All slides were reviewed. The microscopic appearance substantiates the diagnosis. There is an atypical cell population here. Immunohistochemical stains are necessary and indicated to assess it. The following staining pattern is seen. MOC-31: Borderline positive in a few of the atypical cells. WT1: Negative in the atypical cells, positive in a few apparent mesothelial cells. Calretinin: Negative in the atypical cells, positive in a few apparent mesothelial cells. Cytokeratin cocktail: Strongly positive Claudin-4: Positive with membrane accentuation in the atypical cells PAX8: Negative CDX2: Positive in a significant subset of the atypical cells TTF-1: Negative GATA3: Negative These results suggest the possibility of a gastrointestinal primary. Additional immunostains are ordered to assist with further refining the diagnosis. The results are as follows: Cytokeratin 7: Positive Cytokeratin 20: Positive (fewer Cytokeratin 20 positive cells is compared with Cytokeratin 7 positive cells) 11/20/2024 3:00 PM CDT [facility] Additional Information Cytology is screened at [facility] - [address], [place] [address] and [facility] - [address] [place] [address] and [facility] - [address] [place] [address] Interpreted at [facility] - [address], [place] [address] Immunohistochemistry controls were reviewed and approved as appropriate by the pathologist during this examination. 11/20/2024 3:00 PM CDT [facility] Other PERITONEAL FLUID SPECIMEN / Unknown 11/17/2024 12:57 PM CDT 11/18/2024 7:06 AM CDT Aubrey Tate DO PATHOLOGY/CYTOLOGY Final Result [facility] [address] [place] [address], [place] * (ABNORMAL) HEMOGLOBIN A1C MONITORING (POCT) (09/03/2024 9:41 AM CDT) POC HEMOGLOBIN A1C 10.7(H) <6.0 % OF TOTAL HGB [facility] Comment: Any point of care results exhibiting inconsistency with the patient's clinical status should be repeated using a different testing method. Blood BLOOD SPECIMEN / Unknown 09/03/2024 9:41 AM CDT 09/03/2024 9:42 AM CDT Jerel London MD CHEMISTRY Final Re sult [facility] [address] [place] [address], [facility] [address] [place] [address] * (ABNORMAL) CBC AND DIFFERENTIAL (09/03/2024 9:30 AM CDT) [facility] WHITE BLOOD CELL COUNT 8.8 3.8 - [...] Jerel London MD HEMATOLOGY Final Re sult Performing Organization Address City/State/[facility] Co de Phone Number [facility] [address] [place] [address], [facility] [address] [place] [address] from Last 3 Months Insurance MEDICARE ADVANTAGE MR MEDICARE PART A HB ONLY MEDICARE PART B HB ONLY Care Teams Filter Cloth Maker Relationship Specialty Start Date End Date Cruz Parsons MD [address] [place] [address] PCP - Hospice Attending 11/21/24 Pcp, No . PCP - General 11/21/24 Nanci Byrd, RN [address] [place] [address] Nurse Navigator - Oncology Registered Nurse 11/20/24 [facility] [address] [place] [address] 11/21/24
== END 2024-11-21 07:53 | disposition home or self-care (01) ==
LOC: AMB 11-23 10:51
PROVIDERS: Visit Provider Family Medicine
DX: N17.9 Acute kidney failure, unspecified (principal); R18.8 Other ascites; R41.0 Disorientation, unspecified; Z51.5 Encounter for palliative care; N39.0 Urinary tract infection, site not specified
CPT/HCPCS: A0425; A0428